=== PATIENT | male | born 1965 | race Caucasian/White ===

== ENCOUNTER 2018-09-21 10:38 | Emergency (ER) | payer OTHER ==
[2018-09-21 11:35] VITALS: BP 148/86
--- NOTE | 2018-09-21 12:19 | RAD ---
HISTORY: pain on ROM COMPARISONS: None VIEWS: 4 , Frontal internal rotation, external rotation, outlet, and axillary views of the left shoulder FINDINGS: BONE DENSITY: Normal. BONES: There is no displaced fracture. 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 ALIGNMENT: There is no dislocation. SOFT TISSUES: Unremarkable. OTHER FINDINGS: None. IMPRESSION: NO ACUTE OSSEOUS INJURY. IF SYMPTOMS PERSIST, RECOMMEND REPEAT IMAGING.
--- NOTE | 2018-09-21 12:24 | ED ---
Upper Extremity Pain - HPI Summary HPI Summary: 52 yr old male with left shoulder pain since yesterday. No specific exacerbating cause. Denies neck pain. No CP. He states he has limited use of his left arm due to pain on ROM of the left shoulder. he has not had fever or chills. He states lifting arm out to the side or in front makes his pain worse. He has not had weakness to the hand. - History of Current Complaint Chief Complaint: UCUpperExtremity Stated Complaint: LEFT SHOULDER COMPLAINT Time Seen by Provider: 09/21/18 11:50 - Allergies/Home Medications Allergies/Adverse Reactions: Allergies Allergy/AdvReac Type Severity Reaction Status Date / Time No Known Allergies Allergy Verified 10/12/16 13:11 Home Medications: Home Medications Aspirin [Ecotrin Low Strength] 81 mg PO DAILY 09/21/18 [History Confirmed ] PMH/Surg Hx/FS Hx/Imm Hx - Surgical History Surgery Procedure, Year, and Place: [facility] Infectious Disease History: No Infectious Disease History: Denies: Hx Clostridium Difficile, Hx Hepatitis, Hx Human Immunodeficiency Virus (HIV), Hx of Known/Suspected MRSA, Hx Shingles, Hx Tuberculosis, Hx Known/ Suspected VRE, Hx Known/Suspected VRSA, History Other Infectious Disease, Traveled Outside the [place] in Last 30 Days - Social History Alcohol Use: None Substance Use Type: Reports: Marijuana Substance Use Comment - Amount & Last Used: OCCASSIONALLY Smoking Status (MU): Heavy Every Day Tobacco Smoker Amount Used/How Often: 1 ppd Length of Time of Smoking/Using Tobacco: started age 10 Have You Smoked in the Last Year: Yes Review of Systems Constitutional: Negative Positive: Other - shoulder pain made worse with movement. All Other Systems Reviewed And Are Negative: Yes Physical Exam Triage Information Reviewed: Yes Vital Signs On Initial Exam: Initial Vitals Temp Pulse Resp BP Pulse Ox 98.1 F 79 21 148/86 97 09/21/18 11:28 09/21/18 11:28 09/21/18 11:28 09/21/18 11:28 09/21/18 11:28 Vital Signs Reviewed: Yes Appearance: Positive: Well-Appearing, No Pain Distress Skin: Positive: Warm, Skin Color Reflects Adequate Perfusion Head/Face: Positive: Normal Head/Face Inspection Eyes: Positive: EOMI ENT: Positive: Normal ENT inspection Neck: Positive: Nontender Respiratory/Lung Sounds: Positive: Clear to Auscultation, Breath Sounds Present Cardiovascular: Positive: RRR. Negative: Murmur Abdomen Description: Negative: Distended Musculoskeletal: Positive: Other - left shoulder worse pain on palpation of subacromial bursae area. No mass, no redness, no swelling. Pain on forward flexion and on abduction of the left arm at the shoulder. He has good radial pulse left hand. Symmetric color and temp to the left arm. 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 Neurological: Positive: Sensory/Motor Intact, Alert, Oriented to Person Place, Time, CN Intact II-III, Normal Gait, Speech Normal Psychiatric: Positive: Normal - [place] Coma Scale Best Eye Response: 4 - Spontaneous Best Motor Response: 6 - Obeys Commands Best Verbal Response: 5 - Oriented Coma Scale Total: 15 Diagnostics - Vital Signs Vital Signs Temp Pulse Resp BP Pulse Ox 09/21/18 11:28 98.1 F 79 21 148/86 97 - Laboratory Lab Statement: Any lab studies that have been ordered have been reviewed, and results considered in the medical decision making process. - Radiology shoulder left Xray Interpretation: Positive (See Comments) - ac joint arthritis Radiology Interpretation Completed By: Radiologist - EKG ekg Cardiac Rate: NL EKG Rhythm: Sinus Rhythm ST Segment: Normal Ectopy: None Course/Dx - Course Course Of Treatment: 52 yr old with very clear reproducible shoulder pain. He has rotator cuff bursitis, and also ac joint arthritis. Rx motrin. refer to ortho for further evaluation and work up. - Diagnoses Provider Diagnoses: Acromioclavicular joint arthritis, Rotator cuff tendonitis, Hypertension Discharge - Sign-Out/Discharge Documenting (check all that apply): Patient Departure All imaging exams completed and their final reports reviewed: Yes - Discharge Plan Condition: Good Disposition: HOME Prescriptions: Ibuprofen TAB* [Motrin TAB* 600 MG] 600 mg PO Q8H PRN #20 tab PRN Reason: Pain Patient Education Materials: Rotator Cuff Tendinitis (ED), Shoulder Bursitis ( ED), Arthritis (ED) Referrals: Sandirne Lares MD [Primary Care Provider] - 2 Days - Billing Disposition and Condition Condition: GOOD Disposition: Home
== END 2018-09-21 12:50 | disposition home or self-care (01) ==
LOC: UCCORT 10:38
DX: M19.012 Primary osteoarthritis, left shoulder (principal); M75.102 Unspecified rotator cuff tear or rupture of left shoulder, not specified as traumatic; I10 Essential (primary) hypertension; F17.210 Nicotine dependence, cigarettes, uncomplicated; F12.90 Cannabis use, unspecified, uncomplicated; Z79.82 Long term (current) use of aspirin
CPT/HCPCS: 93005; 99212; G0463